=== PATIENT | female | born 1985 | race Caucasian/White ===

== ENCOUNTER → 2019-04-30 16:20 | Outpatient (CLI) | payer OTHER, MEDICAID, SELFPAY ==
[2019-04-30 17:55] LABS: Ferritin 45 ng/mL (8-252)
== END ==
DX: L65.9 Nonscarring hair loss, unspecified (principal); D22.5 Melanocytic nevi of trunk; L30.4 Erythema intertrigo; L71.8 Other rosacea
CPT/HCPCS: 36415; 82728